=== PATIENT | male | born 1965 | race African-American/Black ===

== ENCOUNTER 2017-11-01 03:37 | Emergency (ER) | payer SELFPAY ==
[2017-11-01 03:44] VITALS: BP 162/92
[2017-11-01] MEDS ORDERED: CEFTRIAXONE INJ 250 MG VIAL IM ONE (04:12)
[2017-11-01] MEDS ORDERED: AZITHROMYCIN 1 GM SUSP PACKET PO ONE (04:13)
[2017-11-01] MEDS ORDERED: LIDOCAINE 1% INJ-PF (10 MG/ML) 30 ML SDV INJ ONE (04:13)
--- NOTE | 2017-11-01 04:17 | ER Document Report ---
ED General - General Chief Complaint: STD Exposure Stated Complaint: STD CHECK Time Seen by Provider: 11/01/17 04:05 TRAVEL OUTSIDE OF THE [place] IN LAST 30 DAYS: No - HPI Patient complains to provider of: std check Notes: Beats his sexual partner has had multiple sexual partners and he wants to be treated for STDs Past Medical History - General Information source: Patient - Social History Smoking Status: Current Every Day Smoker Frequency of alcohol use: Social Drug Abuse: None Lives with: Family Family History: Reviewed & Not Pertinent Patient has suicidal ideation: No Patient has homicidal ideation: No - Past Medical History Cardiac Medical History: Reports: Hx Hypertension Endocrine Medical History: Reports: None Renal/ Medical History: Reports: None. Denies: Hx Peritoneal Dialysis Malignancy Medical History: Reports None Past Surgical History: Reports: None Review of Systems - Review of Systems Constitutional: No symptoms reported EENT: No symptoms reported Cardiovascular: No symptoms reported Respiratory: No symptoms reported Gastrointestinal: No symptoms reported Genitourinary: No symptoms reported Male Genitourinary: No symptoms reported Musculoskeletal: Back pain - chronic Skin: No symptoms reported Hematologic/Lymphatic: No symptoms reported Neurological/Psychological: No symptoms reported Physical Exam - Vital signs Vitals: Temp Pulse Resp BP Pulse Ox 98.9 F 92 15 162/92 H 95 11/01/17 03:43 11/01/17 03:43 11/01/17 03:43 11/01/17 03:43 11/01/17 03:43 - Notes Notes: PHYSICAL EXAMINATION: GENERAL: Well-appearing, well-nourished and in no acute distress. HEAD: Atraumatic, normocephalic. EYES: Pupils equal round and reactive to light, extraocular movements intact, sclera anicteric, conjunctiva are normal. ENT: Nares patent, oropharynx clear without exudates. Moist mucous membranes. NECK: Normal range of motion, supple without lymphadenopathy LUNGS: Breath sounds clear to auscultation bilaterally and equal. No wheezes rales or rhonchi. HEART: Regular rate and rhythm without murmurs ABDOMEN: Soft, nontender, nondistended abdomen. No guarding, no rebound. No masses appreciated. Musculoskeletal: Normal range of motion, no pitting or edema. No cyanosis. NEUROLOGICAL: Cranial nerves grossly intact. Normal speech, normal gait. Normal sensory, motor exams PSYCH: Normal mood, normal affect. SKIN: Warm, Dry, normal turgor, no rashes or lesions noted. Course - Re-evaluation Re-evalutation: 11/01/17 04:29 Labs- All tests 24 hr 11/01/17 04:01 Urine Color YELLOW Urine Appearance SLIGHTLY-CLOUDY Urine pH 5.0 Ur Specific [place] 1.020 Urine Protein NEGATIVE Urine Glucose (UA) NEGATIVE Urine Ketones NEGATIVE Urine Blood NEGATIVE Urine Nitrite NEGATIVE Urine Bilirubin NEGATIVE Urine Urobilinogen 2.0 H Ur Leukocyte Esterase NEGATIVE Urine WBC (Auto) 2 Urine RBC (Auto) 0 Squamous Epi Cells Auto <1 Urine Mucus (Auto) FEW Urine Ascorbic Acid NEGATIVE - Vital Signs Vital signs: Temp Pulse Resp BP Pulse Ox 98.9 F 92 15 162/92 H 95 11/01/17 03:43 11/01/17 03:43 11/01/17 03:43 11/01/17 03:43 11/01/17 03:43 - Laboratory Laboratory results interpreted by me: 11/01/17 04:01 Urine Urobilinogen 2.0 H Discharge - Discharge Clinical Impression: STD exposure Disposition: HOME, SELF-CARE Additional Instructions: Please engage in only safe sexual activity. Please follow-up the primary medical doctor as needed.
[2017-11-01 04:18] LABS: APPEARANCE,URINE SLIGHTLY-CLOUDY; BILIRUBIN,URINE NEGATIVE (NEGATIVE); COLOR,URINE YELLOW; GLUCOSE, URINE NEGATIVE (NEGATIVE); KETONES,URINE NEGATIVE (NEGATIVE); LEUKOCYTE ESTERASE,URINE NEGATIVE (NEGATIVE); NITRITE,URINE NEGATIVE (NEGATIVE); PROTEIN,URINE NEGATIVE (NEGATIVE)
[2017-11-01 05:44] LABS: CHLAM PCR NOT DETECTED (NOT DETECT); GON PCR NOT DETECTED (NOT DETECT)
== END 2017-11-01 04:32 | disposition home or self-care (01) ==
LOC: ER 03:37
DX: Z20.2 Contact with and (suspected) exposure to infections with a predominantly sexual mode of transmission (principal); M54.9 Dorsalgia, unspecified; G89.29 Other chronic pain; F17.200 Nicotine dependence, unspecified, uncomplicated; I10 Essential (primary) hypertension
CPT/HCPCS: 99283; 96372; 87086; 81001; 87491; 87591; J3490; Q0144; J0696

== ENCOUNTER 2018-06-30 13:51 | Emergency (ER) | payer SELFPAY | END 2018-06-30 13:55 | disposition left against medical advice (07) | LOC: ER 13:51 | DX: Z53.21 Procedure and treatment not carried out due to patient leaving prior to being seen by health care provider (principal); N50.819 Testicular pain, unspecified ==

== ENCOUNTER 2018-07-03 02:04 | Emergency (ER) | payer SELFPAY ==
--- NOTE | 2018-07-03 04:59 | RADIOLOGY REPORT (SQ) ---
EXAM DESCRIPTION: US SCROTUM COMPLETED DATE/TME: 07/03/2018 00:00 CLINICAL HISTORY: 53 years, Male, swelling and pain COMPARISON: None. TECHNIQUE: Grayscale and color Doppler of the scrotum LIMITATIONS: None. FINDINGS: The right testicle measures 3.8 x 3.7 x 2.3 cm. The left testicle measures 2.9 x 2.0 x 2.2 cm. There is increased vascular flow within the right testicle compared to the left. No focal masses are identified. Both testicles demonstrate flow with no evidence of a torsion. The right epididymis measures 2.2 x 1.8 x 1.3 cm. The left epididymis measures 1.9 x 1.6 x 0.9 cm. The right epididymis is enlarged with increased vascular flow compared to the left. No focal masses are identified. There is a complex right-sided hydrocele with septations and measures 3.1 cm. IMPRESSION: Right epididymoorchitis. Complex right-sided hydrocele which may have a superimposed infection. No evidence of a testicular torsion copyright 2010 [employer]- All Rights Reserved
--- NOTE | 2018-07-03 06:54 | ER Document Report ---
Addendum entered and electronically signed by RANDY SANTOYO PA-C 07/05/18 01:45: Discharge - Discharge Clinical Impression: Epididymo-orchitis, acute Urinary tract infection Qualifiers: Urinary tract infection type: site unspecified Hematuria presence: with hematuria Qualified Code(s): N39.0 - Urinary tract infection, site not specified Condition: Good Disposition: HOME, SELF-CARE Instructions: Anti-Inflammatory Medication ([facility]), Doxycycline ([facility]), Epididymitis ([facility]), Warm Packs ([facility]) Additional Instructions: You are seen in the emergency department this evening for epididymal orchitis. That is inflammation of your epididymis and of your testicle. You were also tested for chlamydia and gonorrhea but we are treating him prophylactically for that because the treatment is also the same as for the condition that was diagnosed. You are also given an outpatient antibiotic called doxycycline that he needs take twice daily for 10 days. If you have worse testicular swelling or pain, develop fever, develop abnormal discharge from your urethra please immediately return the emergency part. Prescriptions: RX: Doxycycline Hyclate 100 mg PO BID 10 Days #20 capsule Sulfamethoxazole/Trimethoprim [Bactrim Ds Tablet] 1 tab PO BID #28 tablet Original Note: ED General - General TRAVEL OUTSIDE OF THE [place] IN LAST 30 DAYS: No - General Chief Complaint: Testicular Swelling Stated Complaint: TESTICULAR PAIN Time Seen by Provider: 07/03/18 02:55 Notes: 53-year-old male presents to the emergency department with right testicle pain that started 2 days ago after having intercourse. He states there was a bit of trauma involved complains when he ejaculates he feels that his right testicle is "clogged ". He denies any high risk sexual contacts, fevers, chills, nausea, vomiting, or urinary symptoms. (RANDY SANTOYO) - Related Data Allergies/Adverse Reactions: No Known Allergies Allergy (Verified 07/03/18 07:31) Past Medical History - General Information source: Patient - Social History Smoking Status: Current Every Day Smoker Chew tobacco use (# tins/day): No Frequency of alcohol use: Social Family History: Reviewed & Not Pertinent Patient has suicidal ideation: No Patient has homicidal ideation: No - Past Medical History Cardiac Medical History: Reports: Hx Hypertension Pulmonary Medical History: Reports: Hx Asthma Renal/ Medical History: Denies: Hx Peritoneal Dialysis Review of Systems - Review of Systems Constitutional: See HPI EENT: No symptoms reported Cardiovascular: No symptoms reported Respiratory: No symptoms reported Gastrointestinal: See HPI Genitourinary: See HPI Male Genitourinary: See HPI Musculoskeletal: No symptoms reported Skin: No symptoms reported Hematologic/Lymphatic: No symptoms reported Neurological/Psychological: No symptoms reported Physical Exam - Vital signs Vitals: Temp Pulse Resp BP Pulse Ox 98.5 F 60 17 129/88 H 97 07/03/18 06:52 07/03/18 06:52 07/03/18 06:52 07/03/18 06:52 07/03/18 06:52 - Notes Notes: Reviewed vital signs and nursing note as charted by RN. CONSTITUTIONAL: Well-appearing, well-nourished, acting appropriately for age HEAD: Normocephalic, atraumatic, no swelling EYES: PERRL, Conjunctivae clear, no drainage, EOMI, no scleral icterus ENT: External ears without lesions, airway patent, mucous membranes pink and moist NECK: Supple, no cervical lymphadenopathy, no masses CARD: Regular rate and rhythm, no murmurs, no rubs, no gallops, capillary refill < 2 seconds, symmetric pulses RESP: The lungs are clear to auscultation bilaterally, no wheezing, no rales, no rhonchi. Respiratory rate and effort are normal, normal chest excursion. No respiratory distress, no retractions, no stridor, no nasal flaring, no accessory muscle use. ABD/GI: Normal bowel sounds, non-distended, soft, non-tender, no rebound : R testicle swelling with swelling of epididymis, no rash, no urethral discharge EXT: Normal ROM in all joints, non-tender to palpation, no effusions, no edema SKIN: Normal color for age and race, warm, dry, good turgor, no acute lesions noted NEURO: No facial asymmetry, moves all extremities equally, motor and sensory function intact (RANDY SANTOYO) Course - Re-evaluation Re-evalutation: 07/03/18 06:54 53-year-old male who presents with right testicle pain times 2 days. His right testicle is swollen and on exam he does have a swollen right epididymis that is ropel[place]. Scrotal ultrasound shows a complex right-sided hydrocele with septations. I have called the urologist on-call at [facility] for consultation and guidance. 07/03/18 06:55 07/03/18 07:[address] Murdock, urologist on-call at [facility]. He states that hydroceles all have septations and this is common. He states that treatment should be standard for epididymitis orchitis with Rocephin 250 mg IM x1 and then follow-up with appropriate antibiotic outpatient treatment. He states if the hydrocele continues to be a problem patient can follow-up down in [facility] where there is urology support. Will be discharged. (RANDY SANTOYO) - Vital Signs Vital signs: Temp Pulse Resp BP Pulse Ox 98.4 F 62 18 144/88 H 100 07/03/18 08:35 07/03/18 08:35 07/03/18 08:35 07/03/18 08:35 07/03/18 08:35 - Laboratory Laboratory results interpreted by me: 07/03/18 08:02 Urine Blood SMALL H Ur Leukocyte Esterase LARGE H Discharge - Discharge Clinical Impression: Epididymo-orchitis, acute Urinary tract infection Qualifiers: Urinary tract infection type: site unspecified Hematuria presence: with hematuria Qualified Code(s): N39.0 - Urinary tract infection, site not specified; R31.9 - Hematuria, unspecified Condition: Good Disposition: HOME, SELF-CARE Instructions: Anti-Inflammatory Medication ([facility]), Doxycycline ([facility]), Epididymitis ([facility]), Warm Packs ([facility]) Additional Instructions: You are seen in the emergency department this evening for epididymal orchitis. That is inflammation of your epididymis and of your testicle. You were also tested for chlamydia and gonorrhea but we are treating him prophylactically for that because the treatment is also the same as for the condition that was diagnosed. You are also given an outpatient antibiotic called doxycycline that he needs take twice daily for 10 days. If you have worse testicular swelling or pain, develop fever, develop abnormal discharge from your urethra please immediately return the emergency part. Prescriptions: Doxycycline Hyclate 100 mg PO BID 10 Days #20 capsule Sulfamethoxazole/Trimethoprim [Bactrim Ds Tablet] 1 tab PO BID #28 tablet
[2018-07-03] MEDS ORDERED: CEFTRIAXONE INJ 250 MG VIAL IM ONE (07:09)
[2018-07-03] MEDS ORDERED: AZITHROMYCIN 250 MG TABLET PO ONE (07:11)
[2018-07-03] MEDS ORDERED: DOXYCYCLINE HYCLATE 100 MG TABLET PO ONE (07:12)
[2018-07-03 08:24] LABS: APPEARANCE,URINE CLOUDY; BILIRUBIN,URINE NEGATIVE (NEGATIVE); COLOR,URINE YELLOW; GLUCOSE, URINE NEGATIVE (NEGATIVE); KETONES,URINE NEGATIVE (NEGATIVE); LEUKOCYTE ESTERASE,URINE LARGE (NEGATIVE); NITRITE,URINE NEGATIVE (NEGATIVE); PROTEIN,URINE NEGATIVE (NEGATIVE); URINE SPECIFIC GRAVITY 1.021; UROBILINOGEN,URINE NEGATIVE mg/dL (<2.0)
[2018-07-03 08:35] VITALS: BP 144/88
[2018-07-03 09:23] LABS: CHLAM PCR DETECTED (NOT DETECT); GON PCR DETECTED (NOT DETECT)
== END 2018-07-03 08:51 | disposition home or self-care (01) ==
LOC: ER 02:04
DX: N45.3 Epididymo-orchitis (principal); N39.0 Urinary tract infection, site not specified; R31.9 Hematuria, unspecified; N43.3 Hydrocele, unspecified; F17.200 Nicotine dependence, unspecified, uncomplicated; I10 Essential (primary) hypertension; J45.909 Unspecified asthma, uncomplicated
CPT/HCPCS: 99284; 96372; 81001; 87491; 87591; 76870; 93976; J0696

== ENCOUNTER 2018-09-09 14:56 | Emergency (ER) | payer SELFPAY ==
[2018-09-09] MEDS ORDERED: METHYLPREDNISOLONE INJ 125 MG/2 ML SDV IV ONE (16:22)
[2018-09-09] MEDS ORDERED: IPRATROPIUM/ALBUTEROL 0.5-2.5 MG/3 ML AMPUL NEB ONE (16:22)
--- NOTE | 2018-09-09 16:38 | ER Document Report ---
ED Medical Screen (RME) - General Chief Complaint: Cough Stated Complaint: FEVER Time Seen by Provider: 09/09/18 16:07 Notes: Patient is a 53-year-old male with asthma that presents to the emergency department for chief complaint of fever, cough and shortness of breath. Patient reports having symptoms for a week, has had a fever of 101 F at home, with increasing shortness of breath. ROS: Other than noted above, the 12 point review of systems was reviewed with the patient and were negative, all pertinent findings are included in the HPI. PHYSICAL EXAMINATION: Vital signs reviewed. GENERAL: Well-appearing, well-nourished and in no acute distress. HEAD: Atraumatic, normocephalic. EYES: Pupils equal round extraocular movements intact, conjunctiva are normal. ENT: Nares patent NECK: Normal range of motion CV: Heart regular rate and rhythm LUNGS: No respiratory distress, diffuse wheezing noted throughout all lung [place] Musculoskeletal: Normal range of motion NEUROLOGICAL: Normal speech PSYCH: Normal mood, normal affect. MDM: Patient seen and examined for rapid initial assessment. Vital signs reviewed. A comprehensive ED assessment and evaluation of the patient, analysis of test results and completion of the medical decision making process will be conducted by additional ED providers. *Note is created using voice recognition software and may contain spelling, syntax or grammatical errors. TRAVEL OUTSIDE OF THE [place] IN LAST 30 DAYS: No - Related Data Allergies/Adverse Reactions: animal dander Allergy (Verified 09/09/18 16:06) Difficulty breathing pollen extracts Allergy (Verified 09/09/18 16:06) Difficulty breathing Past Medical History - Social History Frequency of alcohol use: Heavy Drug Abuse: None - Past Medical History Cardiac Medical History: Reports: Hx Hypertension Pulmonary Medical History: Reports: Hx Asthma Renal/ Medical History: Denies: Hx Peritoneal Dialysis Physical Exam - Vital signs Vitals: Temp Pulse Resp BP Pulse Ox 99.2 F 95 18 162/101 H 96 09/09/18 15:05 09/09/18 15:05 09/09/18 15:05 09/09/18 15:05 09/09/18 15:05 Course - Vital Signs Vital signs: Temp Pulse Resp BP Pulse Ox 99.2 F 95 18 162/101 H 96 09/09/18 15:05 09/09/18 15:05 09/09/18 15:05 09/09/18 15:05 09/09/18 15:05
--- NOTE | 2018-09-09 17:06 | RADIOLOGY REPORT (SQ) ---
EXAM DESCRIPTION: CHEST 2 VIEWS COMPLETED DATE/TIME: 09/09/2018 4:43 pm REASON FOR STUDY: cough COMPARISON: None. EXAM PARAMETERS: NUMBER OF VIEWS: two views TECHNIQUE: Digital Frontal and Lateral radiographic views of the chest acquired. RADIATION DOSE: NA LIMITATIONS: none FINDINGS: LUNGS AND PLEURA: No opacities, masses or pneumothorax. No pleural effusion. MEDIASTINUM AND HILAR STRUCTURES: No masses or contour abnormalities. HEART AND VASCULAR STRUCTURES: Heart normal size. No evidence for failure. BONES: No acute findings. HARDWARE: None in the chest. OTHER: No other significant finding. IMPRESSION: NO ACUTE RADIOGRAPHIC FINDING IN THE CHEST. TECHNICAL DOCUMENTATION: JOB ID: [id number] [employer]- All Rights Reserved Reading location - IP/workstation name: [email or web address]
--- NOTE | 2018-09-09 17:56 | ER Document Report ---
ED General - General Chief Complaint: Cough Stated Complaint: FEVER Time Seen by Provider: 09/09/18 16:07 Primary Care Provider: [facility] [Provider Group] - Follow up as needed [facility] [Provider Group] - Follow up as needed TRAVEL OUTSIDE OF THE [place] IN LAST 30 DAYS: No - HPI Notes: Patient is a 53-year-old male with a history of seasonal allergies and asthma who presents the emergency department complaining of fever (temp of 101 at home), nasal congestion/discharge, dry semi-productive cough, intermittent wheezing over the last week. Patient states that he has not been taking any cold medicine for symptoms. He is eating and drinking without difficulty. Patient states that the only time he has any trouble breathing is when he is in a coughing fit. No other significant cardiopulmonary medical history. He is urinating normally and having normal bowel movements. No other concerns or complaints. Denies any prolonged immobilization, distance travel, recent surgery/trauma, personal cancer history, hormone use, smoking, or previous DV T/PE. Denies any headache, neck pain, sore throat, chest pain, palpitations, syncope, shortness of breath, dyspnea, abdominal pain, nausea/vomiting/diarrhea, urinary retention, dysuria, hematuria, back pain, or rash. - Related Data Allergies/Adverse Reactions: animal dander Allergy (Verified 09/09/18 16:06) Difficulty breathing pollen extracts Allergy (Verified 09/09/18 16:06) Difficulty breathing Past Medical History - Social History Smoking Status: Former Smoker Frequency of alcohol use: Heavy Drug Abuse: None Family History: Reviewed & Not Pertinent Patient has suicidal ideation: No Patient has homicidal ideation: No - Past Medical History Cardiac Medical History: Reports: Hx Hypertension Pulmonary Medical History: Reports: Hx Asthma Renal/ Medical History: Denies: Hx Peritoneal Dialysis Review of Systems - Review of Systems -: Yes All other systems reviewed and negative Physical Exam - Vital signs Vitals: Temp Pulse Resp BP Pulse Ox 99.2 F 95 18 162/101 H 96 09/09/18 15:05 09/09/18 15:05 09/09/18 15:05 09/09/18 15:05 09/09/18 15:05 - Notes Notes: PHYSICAL EXAMINATION: GENERAL: Well-appearing, well-nourished and in no acute distress. A&Ox4. Answe rs questions appropriately. Moves comfortably w/o notable distress HEAD: Atraumatic, normocephalic. EYES: Pupils equal round and reactive to light, extraocular movements intact, sclera anicteric, conjunctiva are normal. ENT: Nares patent and with clear discharge. oropharynx no erythema without exudates. No tonsilar hypertrophy without erythema or exudate. No palatine shift. Uvula midline. No tongue protrusion. No drooling, hoarseness, or airway compromise. Moist mucous membranes. No sinus tenderness. NECK: Normal range of motion, supple without lymphadenopathy. No rigidity/meningismus. LUNGS: Scant wheezing b/l, primarily with expiration. No retractions HEART: Regular rate and rhythm without murmurs, rubs, gallops. ABDOMEN: Soft, nontender, nondistended abdomen. No guarding, no rebound. Normal bowel sounds present. No CVA tenderness bilaterally. Ext: no edema. No LE asymmetry. Baldomero neg b/l. NEUROLOGICAL: Normal speech, normal gait. PSYCH: Normal mood, normal affect. SKIN: Warm, Dry, normal turgor, no rashes or lesions noted. Course - Re-evaluation Re-evalutation: 09/09/18 18:54 Patient is a well-hydrated 53-year-old male who presents the emergency department fever and acute URI, suspect viral. Vitals are acceptable without significant tachycardia, tachypnea, or hypoxia. PE is otherwise unremarkable. Patient is nontoxic-appearing and is tolerating p.o. without difficulty. P atient had an unremarkable septic workup performed. CBC, venous blood gas, CMP, lactic acid, troponin, EKG, chest x-ray were all unremarkable for any acute pathology. Influenza was negative, but our testing is only 50% and patient has had symptoms generally for about a week. This is possible that he could still be having a flu despite negative testing. He has been on the treatment window with Tamiflu. Pt has not had any CP, CERVANTES, or SOB (only during coughing fit). Heart score of 2. Wells 0. No further labs or imaging warranted. Patient was given a breathing treatment, Toradol, Solu-Medrol. Low suspicion for any ACS, PE, pneumothorax, pericarditis, dissection, meningitis, sepsis, per itonsillar/pharyngeal abscess, respiratory compromise, or other emergent systemic condition at this time. Patient is aware this condition can change from initial presentation and he needs to monitor symptoms closely. Rx for steroid pack. Conservative measures otherwise for symptoms. Recheck with your PCM in 2-3 days. Return to the ED with any worsening/concerning symptoms otherwise as reviewed in discharge. Patient is in agreement. - Vital Signs Vital signs: Temp Pulse Resp BP Pulse Ox 100.8 F H 95 18 162/101 H 96 09/09/18 18:01 09/09/18 15:05 09/09/18 15:05 09/09/18 15:05 09/09/18 15:05 - Laboratory Result Diagrams: 09/09/18 17:23 09/09/18 17:23 Laboratory results interpreted by me: 09/09/18 09/09/18 17:23 17:23 RDW 14.8 H Monocytes % 19.2 H Sodium 136.5 L Discharge - Discharge Clinical Impression: Acute URI Fever Qualifiers: Fever type: unspecified Qualified Code(s): R50.9 - Fever, unspecified Asthma Qualifiers: Asthma severity: mild Asthma persistence: intermittent Asthma complication type: uncomplicated Qualified Code(s): J45.20 - Mild intermittent asthma, uncomplicated Condition: Stable Disposition: HOME, SELF-CARE Instructions: Upper Respiratory Illness ([facility]) Additional Instructions: Maintain adequate fluid intake Take meds as directed tylenol/ibuprofen as needed alternating every 3 hours for fever/body over the counter cold medication as needed for symptoms Humidified air may help Wash your hands regularly Wear a mask when coughing F/u: with your PCM in 2-3 days for a recheck Return to the ED with any uncontrollable fever, worsening pain, chest pain, palpitations, syncope, worsening STARK, neck pain/stiffness, shortness of breath, wheezing, drooling, trouble swallowing/breathing, abdominal pain, n/v/d, rash, or worsening/concerning symptoms otherwise. Prescriptions: Albuterol Sulfate [Proair HFA Inhalation Aerosol 8.5 gm MDI] 2 puff IH Q4H PRN #1 mdi PRN Reason: Prednisone [Deltasone 20 mg Tablet] 3 tab PO DAILY 4 Days #12 tablet Forms: Elevated Blood Pressure, Return to Work Referrals: [facility] [Provider Group] - Follow up as needed [facility] [Provider Group] - Follow up as needed
[2018-09-09] MEDS ORDERED: KETOROLAC TROMETHAMINE INJ/PF 30 MG/1 ML SDV IV ONE (18:00)
[2018-09-09 18:07] LABS: VENOUS BLOOD BASE EXCESS -1.3 mmol/L; VENOUS BLOOD HCO3 24.8 mmol/L (20-32); VENOUS BLOOD PCO2 46.8 mmHg (35-63); VENOUS BLOOD PH 7.34 (7.30-7.42)
[2018-09-09 18:12] LABS: ABSOLUTE LYMPHOCYTES (AUTO) 0.8 10^3/uL (0.5-4.7); ABSOLUTE NEUT (AUTO) 3.3 10^3/uL (1.7-8.2); EOSINOPHILS % (AUTO) 0.3 % (0-6); HEMATOCRIT 42.6 % (37.9-51.0); HEMOGLOBIN 14.1 g/dL (13.5-17.0); LYMPHOCYTES % (AUTO) 14.9 % (13-45); MEAN CORPUSCULAR HEMOGLOBIN 27.3 pg (27.0-33.4); MEAN CORPUSCULAR HGB CONC 33.1 g/dL (32.0-36.0); MEAN CORPUSCULAR VOLUME 82 fl (80-97); MONOCYTES % (AUTO) 19.2 % (3-13); PLATELET COUNT 232 10^3/uL (150-450); RED BLOOD COUNT 5.17 10^6/uL (4.35-5.55); RED CELL DISTRIBUTION WIDTH 14.8 % (11.5-14.0); SEGMENTED NEUTROPHILS % (AUTO) 64.6 % (42-78); TOTAL CELLS COUNTED % (AUTO) 100 %; WHITE BLOOD COUNT 5.1 10^3/uL (4.0-10.5)
[2018-09-09 18:17] LABS: INTERNATIONAL RATION (INR) 0.92; PROTHROMBIN TIME 12.8 SEC (11.4-15.4)
[2018-09-09 18:33] LABS: ALANINE AMINOTRANSFERASE 41 U/L (21-72); ALBUMIN 4.2 g/dL (3.5-5.0); ALKALINE PHOSPHATASE 116 U/L (38-126); ANION GAP 10 (5-19); ASPARTATE AMINO TRANSFERASE 50 U/L (17-59); BILIRUBIN,DIRECT 0.3 mg/dL (0.0-0.4); BILIRUBIN,TOTAL 0.6 mg/dL (0.2-1.3); BLOOD UREA NITROGEN 14 mg/dL (7-20); CALCIUM 9.6 mg/dL (8.4-10.2); CARBON DIOXIDE 23 mmol/L (22-30); CHLORIDE 104 mmol/L (98-107); GLUCOSE 98 mg/dL (75-110); SODIUM 136.5 mmol/L (137-145); TOTAL PROTEIN 7.8 g/dL (6.3-8.2)
[2018-09-09 18:35] LABS: A TYPE INFLUENZA AG NEGATIVE (NEGATIVE); B INFLUENZA AG NEGATIVE (NEGATIVE)
[2018-09-09 19:02] VITALS: BP 149/86
[2018-09-09] MEDS ORDERED: ALBUTEROL SULFATE HFA (90 MCG/PUFF) 8 GM MDI (1 MDI/ER DISP) IH ONE (19:08)
--- NOTE | 2018-09-09 21:00 | ER Document Report ---
Doctor's Note Notes: I personally and independently obtained patient history and examined the patient in conjunction with the APC and agree with the assessment, treatment plan and disposition of the patient as recorded by the APC, and have reviewed the APC's note. HISTORY OF PRESENT ILLNESS: Patient is a 53-year-old male with asthma that presents to the emergency department for chief complaint of fever, cough and shortness of breath. Patient reports having symptoms for a week, has had a fever of 101 F at home, with increasing shortness of breath. He states he did have albuterol, but has since run out of it, he usually did benefit from this. ROS: Other than noted above, the 12 point review of systems was reviewed with the patient and were negative, all pertinent findings are included in the HPI. PHYSICAL EXAMINATION: Vital signs reviewed. GENERAL: Well-appearing, well-nourished and in no acute distress. HEAD: Atraumatic, normocephalic. EYES: Pupils equal round extraocular movements intact, conjunctiva are normal. ENT: Nares patent NECK: Normal range of motion CV: Heart regular rate and rhythm LUNGS: No respiratory distress, diffuse wheezing noted throughout all lung [place], however, but no increased work of breathing, no rales or respiratory distress Musculoskeletal: Normal range of motion NEUROLOGICAL: Normal speech PSYCH: Normal mood, normal affect. MEDICAL DECISION MAKING: Septic workup was initiated given that the patient was stating fever at home, was borderline tachycardic, with respiratory symptoms, chest x-ray was negative, no leukocytosis on blood work, patient was given breathing treatments and was much improved, at this point sepsis was ruled out, and will discharge the patient home on albuterol, and oral steroid, and have him follow-up with primary care. Please review detail APC documentation. *Note is created using voice recognition software and may contain spelling, syntax or grammatical errors. Laboratory 09/09/18 09/09/18 09/09/18 17:23 17:23 17:23 WBC 5.1 RBC 5.17 Hgb 14.1 Hct 42.6 MCV 82 MCH 27.3 MCHC 33.1 RDW 14.8 H Plt Count 232 Seg Neutrophils % 64.6 Lymphocytes % 14.9 Monocytes % 19.2 H Eosinophils % 0.3 Basophils % 1.0 Absolute Neutrophils 3.3 Absolute Lymphocytes 0.8 Absolute Monocytes 1.0 Absolute Eosinophils 0.0 Absolute Basophils 0.0 PT 12.8 INR 0.92 VBG pH VBG pCO2 VBG HCO3 VBG Base Excess Sodium 136.5 L Potassium 4.0 Chloride 104 Carbon Dioxide 23 Anion Gap 10 BUN 14 Creatinine 1.04 Est GFR ( Amer) > 60 Est GFR (Non-Af Amer) > 60 Glucose 98 POC Glucose Lactic Acid Calcium 9.6 Total Bilirubin 0.6 Direct Bilirubin 0.3 Neonat Total Bilirubin Not Reportable Neonat Direct Bilirubin Not Reportable Neonat Indirect Bili Not Reportable AST 50 ALT 41 Alkaline Phosphatase 116 Troponin I Total Protein 7.8 Albumin 4.2 Influenza A (Rapid) Influenza B (Rapid) 09/09/18 09/09/18 09/09/18 17:23 17:23 17:23 WBC RBC Hgb Hct MCV MCH MCHC RDW Plt Count Seg Neutrophils % Lymphocytes % Monocytes % Eosinophils % Basophils % Absolute Neutrophils Absolute Lymphocytes Absolute Monocytes Absolute Eosinophils Absolute Basophils PT INR VBG pH 7.34 VBG pCO2 46.8 VBG HCO3 24.8 VBG Base Excess -1.3 Sodium Potassium Chloride Carbon Dioxide Anion Gap BUN Creatinine Est GFR ( Amer) Est GFR (Non-Af Amer) Glucose POC Glucose Lactic Acid 0.9 Calcium Total Bilirubin Direct Bilirubin Neonat Total Bilirubin Neonat Direct Bilirubin Neonat Indirect Bili AST ALT Alkaline Phosphatase Troponin I < 0.012 Total Protein Albumin Influenza A (Rapid) Influenza B (Rapid) 09/09/18 09/09/18 17:31 18:11 WBC RBC Hgb Hct MCV MCH MCHC RDW Plt Count Seg Neutrophils % Lymphocytes % Monocytes % Eosinophils % Basophils % Absolute Neutrophils Absolute Lymphocytes Absolute Monocytes Absolute Eosinophils Absolute Basophils PT INR VBG pH VBG pCO2 VBG HCO3 VBG Base Excess Sodium Potassium Chloride Carbon Dioxide Anion Gap BUN Creatinine Est GFR ( Amer) Est GFR (Non-Af Amer) Glucose POC Glucose 89 Lactic Acid Calcium Total Bilirubin Direct Bilirubin Neonat Total Bilirubin Neonat Direct Bilirubin Neonat Indirect Bili AST ALT Alkaline Phosphatase Troponin I Total Protein Albumin Influenza A (Rapid) NEGATIVE Influenza B (Rapid) NEGATIVE Chest X-Ray 09/09/18 16:22 IMPRESSION: NO ACUTE RADIOGRAPHIC FINDING IN THE CHEST.
--- NOTE | 2018-09-09 21:23 | EKG REPORT ---
SEVERITY:- NORMAL ECG - SINUS RHYTHM : Confirmed by: Mirella Mosley MD 09-Sep-2018 21:22:51
== END 2018-09-09 19:17 | disposition home or self-care (01) ==
LOC: ER 14:56
DX: J45.20 Mild intermittent asthma, uncomplicated (principal); J06.9 Acute upper respiratory infection, unspecified; R50.9 Fever, unspecified; R05 Cough; I10 Essential (primary) hypertension; Z87.891 Personal history of nicotine dependence; Z91.048 Other nonmedicinal substance allergy status
CPT/HCPCS: 93005; 94640; 99284; 96374; 96375; 36415; 87040; 82962; 85025; 85610; 80053; 84484; 82803; 83605; 87804; 71046; 93010; J2930; J1885; J3490; J7620